=== PATIENT | male | born 1980 | race Caucasian/White ===

== ENCOUNTER 2020-03-12 08:00 | Emergency (ER) | payer BC ==
[~2020-03-12] VITALS: Ht 165.1 cm; Wt 61.2 kg
[2020-03-12] MEDS ORDERED: FLEXERIL PO (09:13)
[2020-03-12] MEDS ORDERED: IBUPROFEN 800800 M1 PO (09:13)
[2020-03-12] MEDS ORDERED: NORCO 5-325 TA1 EAC2 PO (09:13)
[2020-03-12 09:34] VITALS: BP 125/62
== END 2020-03-12 09:38 | disposition home or self-care (01) ==
LOC: M.ERS 08:00
DX: S20.211A Contusion of right front wall of thorax, initial encounter (principal); W01.0XXA Fall on same level from slipping, tripping and stumbling without subsequent striking against object, initial encounter; Y93.89 Activity, other specified; Y92.89 Other specified places as the place of occurrence of the external cause; Y99.8 Other external cause status